=== PATIENT | female | born 1950 | race Two or more races ===

== ENCOUNTER 2018-02-22 18:03 | Emergency (ER) | payer MEDICARE, OTHER ==
[~2018-02-22] VITALS: Ht 160 cm; Wt 78.5 kg
[2018-02-22] MEDS ORDERED: LIDOCAINE HCL 2% LOCAL 20 ML VIAL INJ ONE (21:45)
[2018-02-22] MEDS ORDERED: LIDOCAINE HCL 1% LOCAL INJ 20 ML VIAL ONE (21:50)
[2018-02-22] MEDS ORDERED: BACITRACIN ZINC 0.9GM TP ONE ×2 (22:17→22:30)
[2018-02-22] MEDS ORDERED: KEFLEX500 MG PO (22:17)
== END 2018-02-22 22:45 | disposition home or self-care (01) ==
LOC: ER 18:03
DX: S61.011A Laceration without foreign body of right thumb without damage to nail, initial encounter (principal); W45.8XXA Other foreign body or object entering through skin, initial encounter; Y92.008 Other place in unspecified non-institutional (private) residence as the place of occurrence of the external cause; I10 Essential (primary) hypertension; E11.9 Type 2 diabetes mellitus without complications; E78.5 Hyperlipidemia, unspecified; E07.9 Disorder of thyroid, unspecified
CPT/HCPCS: 12001; 99284; J2001

== ENCOUNTER 2020-03-27 17:59 | Emergency (ER) | payer MEDICARE ==
[~2020-03-27] VITALS: Ht 160 cm; Wt 70.1 kg
[~2020-03-27 17:59] MED LIST: KEFLEX500 MG PO
--- NOTE | 2020-03-27 18:41 | NUR ---
Report to DERIK Felix
--- NOTE | 2020-03-27 19:44 | Diagnostic Imaging Report ---
EXAM: CT Abdomen and Pelvis WITHOUT contrast INDICATION: Right sided abdominal pain status post fall. COMPARISON: None. TECHNIQUE: Abdomen and pelvis were scanned utilizing a multidetector helical scanner from the lung base to the pubic symphysis without administration of IV contrast. Absence of intravenous contrast decreases sensitivity for detection of focal lesions and vascular pathology. Coronal and sagittal reformations were obtained. Routine protocol was performed. IV CONTRAST: None. ORAL CONTRAST: Water RADIATION DOSE: Total DLP: 716.27 mGy*cm Estimated effective dose: (DLP x 0.015 x size factor) mSv COMPLICATIONS: None FINDINGS: LINES and TUBES: None. LOWER THORAX: Coronary artery calcifications. HEPATOBILIARY: The liver is mildly diffuse hypodense compared to the spleen, consistent with diffuse hepatic diffuse hepatic steatosis. No focal hepatic lesions. No biliary ductal dilation. GALLBLADDER: No radio-opaque stones or sludge. No wall thickening. SPLEEN: No splenomegaly. Multiple punctate calcified granulomata. PANCREAS: No focal masses or ductal dilatation. ADRENALS: No adrenal nodules KIDNEYS/URETERS: No hydronephrosis. No cystic or solid mass lesions. No stones. GI TRACT: No abnormal distention, wall thickening, or evidence of bowel obstruction. There are diverticula within the colon without evidence of diverticulitis. Moderate to large volume of stool within the colon. Appendix is not identified, however, no evidence of appendicitis. PELVIC ORGANS/BLADDER: Unremarkable. LYMPH NODES: No lymphadenopathy. VESSELS: There is severe atherosclerotic disease in the aorta and major arterial branches. PERITONEUM / RETROPERITONEUM: No free air or fluid. BONES: There are degenerative changes in the lumbar spine particularly at L5-S1. Grade 1 anterolisthesis of L4 in relation to L5. Laminectomy of right S1.. SOFT TISSUES: Unremarkable. IMPRESSION: 1. No acute abdominal pelvic abnormality. 2. Colonic diverticulosis without acute diverticulitis. Signed by: Dr. Shellie Street M.D. on 03/27/2020 7:41 PM
--- NOTE | 2020-03-27 20:15 | Emergency Department Note ---
History of Present Illnes History of Present Illness Chief Complaint: General Medicine Complaints History of Present Illness This is a 69 year old Other female . Chief Complaint Comment Reports that she fell onto a tile floor on Monday and now has increased tenderness and swelling to her right rib area, pain with deep inspiration. Pt denies hitting her head or any LOC or any other injury. Historian: Patient Arrival Mode: Car Location: abdomen Quality: dull Radiation: Denies non-radiation, Denies back, Denies neck, Denies extremity, Denies abdomen, Denies periumbilical, Denies flank, Denies proximal, Denies distal, Denies other Severity: moderate Onset quality: gradual Duration (how long): day(s) (4) Timing of current episode: constant Progression: unchanged Chronicity: new Relieving factors: none Exacerbating factors: none Associated symptoms: Denies denies other symptoms, Denies confusion, Denies chest pain, Denies cough, Denies diaphoresis, Denies fever/chills, Denies headaches, Denies loss of appetite, Denies malaise, Denies nausea/vomiting, Denies rash, Denies seizure, Denies shortness of breath, Denies syncope, Denies weakness, Denies other Treatments prior to arrival: none Past Medical/Family History Physician Review I have reviewed the patient's past medical and family history. Any updates have been documented here. Past Medical History Recent Fever: No Clinical Suspicion of Infectio: No New/Unexplained Change in Ment: No Past Medical History: Hypertension, Diabetes, Hypothyroidism Past Surgical History: T&A Other Surgery: Ear surgery Social History Smoking Cessation: Current every day smoker Counseling Performed: Yes Alcohol Use: None Any Illegal Drug Use: No Physically hurt or threatened: No Other Last Tetanus: UTD Any Pre-Existing Lines (PICC,: No Review of Systems Review of Systems Constitutional: Reports no symptoms EENTM: Reports no symptoms Cardiovascular: Reports no symptoms Respiratory: Reports no symptoms Gastrointestinal: Reports as per HPI Genitourinary: Reports no symptoms Musculoskeletal: Reports no symptoms Integumentary: Reports no symptoms Neurological: Reports no symptoms Psychological: Reports no symptoms Endocrine: Reports no symptoms Hematological/Lymphatic: Reports no symptoms Physical Exam Related Data Allergies: Coded Allergies: No Known Drug Allergies (Verified Allergy, Mild, 02/22/18) Triage Vital Signs Vital Signs Date Time Temp Pulse Resp B/P (MAP) Pulse Ox O2 Delivery O2 Flow Rate FiO2 03/27/20 18:10 97.8 64 18 155/77 98 Room Air Vital signs reviewed: Yes Physical Exam CONSTITUTIONAL Constitutional: Present well-developed, Present well-nourished HENT HENT: Present normocephalic, Present atraumatic, Present oropharynx clear/moist, Present nose normal HENT L/R: Present left ext ear normal, Present right ext ear normal EYES Eyes: Reports PERRL, Reports conjunctivae normal NECK Neck: Present ROM normal PULMONARY Pulmonary: Present effort normal, Present breath sounds normal CARDIOVASCULAR Cardiovascular: Present regular rhythm, Present heart sounds normal, Present capillary refill normal, Present normal rate GASTROINTESTINAL Abdominal: Present soft, Present nontender, Present bowel sounds normal, Present tender (RUQ) GENITOURINARY Genitourinary: Present exam deferred SKIN Skin: Present warm, Present dry MUSCULOSKELETAL Musculoskeletal: Present ROM normal NEUROLOGICAL Neurological: Present alert, Present oriented x 3, Present no gross motor or sensory deficits PSYCHOLOGICAL Psychological: Present mood/affect normal, Present judgement normal Results Imaging Imaging results reviewed: Yes Assessment & Plan Medical Decision Making MDM RIB FX LIVER CONTUSION Reassessment Reassessment time: 20:14 Reassessment BETTER Assessment & Plan Final Impression: (1) Acute pain due to trauma (2) Abdominal wall contusion Last Vital Signs Date Time Temp Pulse Resp B/P (MAP) Pulse Ox O2 Delivery O2 Flow Rate FiO2 03/27/20 18:10 97.8 64 18 155/77 98 Room Air Home Meds Active Scripts Cephalexin Monohydrate (KEFLEX) 500 Mg Capsule, 500 MG PO Q6H for 7 Days, #28 T AB 0 Refills Prov:ÁNGEL DONALDSON NP 02/22/18 NIR RAO MD Mar 27, 2020 20:15
[2020-03-27] MEDS ORDERED: CYCLOBENZAPRINE5 MG PO (20:19)
[2020-03-27] MEDS ORDERED: TYLENOL # 31 EA PO (20:19)
== END 2020-03-27 20:35 | disposition home or self-care (01) ==
LOC: FSED 18:32
DX: S30.1XXA Contusion of abdominal wall, initial encounter (principal); W01.0XXA Fall on same level from slipping, tripping and stumbling without subsequent striking against object, initial encounter; Y93.01 Activity, walking, marching and hiking; Y92.89 Other specified places as the place of occurrence of the external cause; I10 Essential (primary) hypertension; E11.9 Type 2 diabetes mellitus without complications; E03.9 Hypothyroidism, unspecified; F17.210 Nicotine dependence, cigarettes, uncomplicated
CPT/HCPCS: 74176; 99283

== ENCOUNTER 2024-03-18 17:08 | Emergency (ER) | payer MEDICARE ==
[~2024-03-18] VITALS: Ht 157.5 cm; Wt 65.3 kg
[~2024-03-18 17:08] MED LIST changes: +CYCLOBENZAPRINE5 MG PO; +TYLENOL # 31 EA PO
[2024-03-18 17:32] VITALS: PULSE 76; RESP 16; TEMP 97.3; O2SAT 96
[2024-03-18] MEDS ORDERED: CORICIDIN COLD1 EACH PO (17:56)
[2024-03-18] MEDS ORDERED: AMOXICILLIN500 MG PO (17:58)
[2024-03-18] MEDS ORDERED: VENTOLIN HFA18 GM INH (17:58)
== END 2024-03-18 18:09 | disposition home or self-care (01) ==
LOC: FSED 17:15
DX: R05.9 Cough, unspecified (principal); J06.9 Acute upper respiratory infection, unspecified; R01.1 Cardiac murmur, unspecified; I10 Essential (primary) hypertension; E11.9 Type 2 diabetes mellitus without complications; E03.9 Hypothyroidism, unspecified; Z11.52 Encounter for screening for COVID-19
CPT/HCPCS: 0223U; 83518; 87400; 99283

== ENCOUNTER 2025-04-16 13:42 | Emergency (ER) | payer MEDICARE ==
[~2025-04-16] VITALS: Ht 160 cm; Wt 63.6 kg
[~2025-04-16 13:42] MED LIST changes: +AMOXICILLIN500 MG PO; +CORICIDIN COLD1 EACH PO; +VENTOLIN HFA18 GM INH
[2025-04-16] MEDS ORDERED: SERTRALINE HCL50 MG PO (14:07)
[2025-04-16] MEDS ORDERED: GLIPIZIDE ER5 MG PO (14:07)
[2025-04-16] MEDS ORDERED: LEVOTHYROXINE50 MCG PO (14:07)
[2025-04-16] MEDS ORDERED: ATORVASTATIN CA20 MG PO (14:07)
[2025-04-16] MEDS ORDERED: AMLODIPINE BESY10 MG PO (14:07)
[2025-04-16] MEDS ORDERED: METFORMIN HCL1000 M1 (14:07)
[2025-04-16] MEDS: BACITRACIN ZINC 0.9GM TP ONE (14:23)
[2025-04-16 15:13] VITALS: PULSE 68; RESP 16; TEMP 98.1; O2SAT 96
== END 2025-04-16 15:13 | disposition home or self-care (01) ==
LOC: FSED 13:48
DX: M25.522 Pain in left elbow (principal); M25.562 Pain in left knee; W01.0XXA Fall on same level from slipping, tripping and stumbling without subsequent striking against object, initial encounter; Y93.01 Activity, walking, marching and hiking; Y92.89 Other specified places as the place of occurrence of the external cause; I10 Essential (primary) hypertension; E11.9 Type 2 diabetes mellitus without complications; E78.5 Hyperlipidemia, unspecified; E03.9 Hypothyroidism, unspecified; F41.9 Anxiety disorder, unspecified; F32.A Depression, unspecified; F17.210 Nicotine dependence, cigarettes, uncomplicated
CPT/HCPCS: 99283